=== PATIENT | male | born 1955 | race Caucasian/White ===

== ENCOUNTER 2023-07-21 09:58 | Outpatient (RCR) | payer MEDICARE, SELFPAY | END 2023-07-21 23:59 | disposition home or self-care (01) | LOC: CRHB 09:58 | PROVIDERS: ATTENDING PHYSICIAN Internal Medicine Cardiovascular Disease | DX: I25.10 Atherosclerotic heart disease of native coronary artery without angina pectoris (principal); Z95.5 Presence of coronary angioplasty implant and graft; I50.22 Chronic systolic (congestive) heart failure | CPT/HCPCS: G0422; G0423 ==

== ENCOUNTER → 2023-11-24 10:13 | Outpatient (REF) | payer MEDICARE, SELFPAY | LOC: RCS 10:13 | PROVIDERS: ATTENDING PHYSICIAN Internal Medicine Cardiovascular Disease; FAMILY PHYSICIAN Internal Medicine | DX: I25.5 Ischemic cardiomyopathy (principal) | CPT/HCPCS: 93306; Q9950 ==

== ENCOUNTER → 2023-12-27 13:58 | Outpatient (REF) | payer MEDICARE, SELFPAY | LOC: RAD 13:58 | PROVIDERS: ATTENDING PHYSICIAN Internal Medicine | DX: F17.201 Nicotine dependence, unspecified, in remission (principal) | CPT/HCPCS: 76770 ==

== ENCOUNTER → 2024-11-21 09:16 | Outpatient (REF) | payer MEDICARE, SELFPAY | LOC: HWRCS 09:16 | PROVIDERS: ATTENDING PHYSICIAN Student in an Organized Health Care Education/Training Program | DX: I50.22 Chronic systolic (congestive) heart failure (principal) | CPT/HCPCS: 93306 ==